=== PATIENT | male | born 1970 | race African-American/Black ===

== ENCOUNTER 2021-05-05 09:38 | Emergency (ER) | payer MEDICAID ==
[~2021-05-05] VITALS: Ht 170.2 cm; Wt 123.0 kg
[~2021-05-05 09:38] MED LIST: CYCLOBENZAPRINE; DICLOFENAC; TRAMADOL
[2021-05-05 12:49] VITALS: BP 144/91
[2021-05-05] MEDS ORDERED: ACETAMINOPHEN 325MG TABLET PO ONE (13:00)
[2021-05-05] MEDS ORDERED: KETOROLAC 30MG/ML VIAL IM ONE (13:00)
== END 2021-05-05 13:55 | disposition home or self-care (01) ==
LOC: ER 09:38
DX: R51.9 Headache, unspecified (principal); R42 Dizziness and giddiness; H91.92 Unspecified hearing loss, left ear; R03.0 Elevated blood-pressure reading, without diagnosis of hypertension; Z91.013 Allergy to seafood
CPT/HCPCS: 70450; 96372; 99284; J1885